=== PATIENT | female | born 1995 | race Caucasian/White ===

== ENCOUNTER 2018-04-09 05:44 | Emergency (ER) | payer MEDICAID ==
[2018-04-09] MEDS ORDERED: Acetaminophen TAB* 325 MG PO ONE (06:29)
[2018-04-09] MEDS ORDERED: Amoxicillin PO (*) 500 MG CAP PO ONE (06:29)
--- NOTE | 2018-04-09 06:32 | ED ---
Throat Pain/Nasal Congestion - HPI Summary HPI Summary: Lt lower tooth swollen and painful past 2 days. H/o recurrent infection since root canal a few years ago - get 3 infections per year - feels same. Needs to f/ u w/ dentist. Has been using salt water rinses w/ relief however concerned her face may start to swelling as it was swollen this morning - better since up and about. Denies fever, chills, N/V, headache, difficulty breathing or swallowing. Her neck has been a little sore in the front but denies aj stiffness. Also admits to rhinorrhea and PND - "kids have been sick" (URI). NOTE: pt had control method removed last month. Has been sexually active since. 2 weeks since last period. Trying to get but doesn't believe she is - has been having unprotected sex. - History of Current Complaint Chief Complaint: EDDentalPain Time Seen by Provider: 04/09/18 06:15 Hx Obtained From: Patient - Allergies/Home Medications Allergies/Adverse Reactions: Allergies Allergy/AdvReac Type Severity Reaction Status Date / Time No Known Allergies Allergy Verified 04/09/18 05:51 PMH/Surg Hx/FS Hx/Imm Hx Previously Healthy: Yes Endocrine/Hematology History: Denies: Hx Anticoagulant Therapy, Hx Blood Disorders, Autoimmune Disease Respiratory History: Denies: Hx Asthma EENT History: Reports: Other - recurrent dental infection Infectious Disease History: No Infectious Disease History: Denies: Traveled Outside the [place] in Last 30 Days - Family History Known Family History: Positive: Cardiac Disease, Diabetes, Other - cancer - Social History Occupation: Employed Full-time - [employer] Lives: With Family Alcohol Use: None Hx Substance Use: No Substance Use Type: Reports: None Hx Tobacco Use: Yes Amount Used/How Often: 1/2 PPD Review of Systems Constitutional: Negative Negative: Fever, Chills, Fatigue Positive: Dental Pain, Ear Ache - pain radiating from tooth to Lt ear, Nasal Discharge - rhinorrhea. Negative: Sore Throat Cardiovascular: Negative Respiratory: Negative Gastrointestinal: Negative Positive: no symptoms reported Musculoskeletal: Negative Skin: Negative Neurological: Negative Psychological: Normal All Other Systems Reviewed And Are Negative: Yes Physical Exam Triage Information Reviewed: Yes Vital Signs On Initial Exam: Initial Vitals Temp Pulse Resp BP Pulse Ox 97.6 F 90 16 117/66 98 04/09/18 05:48 04/09/18 05:48 04/09/18 05:48 04/09/18 05:48 04/09/18 05:48 Vital Signs Reviewed: Yes Appearance: Positive: Well-Appearing, No Pain Distress, Thin Skin: Positive: Warm, Skin Color Reflects Adequate Perfusion, Dry - no rash Head/Face: Positive: Normal Head/Face Inspection Eyes: Positive: Normal, EOMI, Conjunctiva Clear. Negative: Conjunctiva Inflammed, Discharge ENT: Positive: Hearing grossly normal, Pharynx normal, TMs normal, Dental tenderness - #21 w/ amalgom filling along lateral aspect of tooth with decay at the base - no aj erythema or edema or drainage - mild TTP focal to the area - tooth is not lax, no pustules, Uvula midline. Negative: Tonsillar swelling, Tonsillar exudate, Trismus, Muffled voice, Sinus tenderness Dental: Positive: Other - diffuse plaque - otherwise, dentition and gingiva appear overall healthy. Negative: Abscess @ Neck: Positive: Supple, Nontender, Enlarged Nodes @ - diffuse posterior, anterior cc LN's are mildly enlarged - mobile, well defined and mild TTP Respiratory/Lung Sounds: Positive: Clear to Auscultation, Breath Sounds Present Cardiovascular: Positive: Normal, RRR Musculoskeletal: Positive: Normal, Strength/ROM Intact Neurological: Positive: Normal, Sensory/Motor Intact, Alert, Oriented to Person Place, Time, CN Intact II-III Psychiatric: Positive: Normal Diagnostics - Vital Signs Vital Signs Temp Pulse Resp BP Pulse Ox 04/09/18 05:48 97.6 F 90 16 117/66 98 - Laboratory Lab Statement: Any lab studies that have been ordered have been reviewed, and results considered in the medical decision making process. EENT Course/Dx - Course Course Of Treatment: D/T inability to test for but pt reports actively trying to get , chose meds that are safe in and advised close f/u on testing herself for in 2 weeks when she should get her period. Education about avoiding ibuprofen until she is sure about status. DAnger s/sx of when to seek medical attention sooner for dental infection - otherwise, f/u w/ dentist. - Diagnoses Provider Diagnoses: Infected dental caries Discharge - Sign-Out/Discharge Documenting (check all that apply): Patient Departure - Discharge Plan Condition: Stable Disposition: HOME Prescriptions: Amoxicillin PO (*) [Amoxicillin 500 MG CAP*] 500 mg PO TID #30 cap Patient Education Materials: Dental Abscess (ED) Referrals: No Primary Care Phys,NOPCP [Primary Care Provider] - Additional Instructions: Continue salt water oral rinses Take acetaminophen extra strength every 6 hours as needed for pain AVOID IBUPROFEN UNTIL YOU EITHER GET YOUR PERIOD OR CHECK A TEST IN 2 WEEKS THIS MEDICATION MAY BE HARMFUL IN . Complete antibiotics as directed Follow-up with dentist G[facility] - call today to schedule an appointment for next week *If your symptoms worsen, return to ED - Billing Disposition and Condition Condition: STABLE Disposition: Home
[2018-04-09 06:55] VITALS: BP 118/66
== END 2018-04-09 06:55 | disposition home or self-care (01) ==
LOC: ED 05:44
DX: K02.9 Dental caries, unspecified (principal)
CPT/HCPCS: 99282; A9270-GY

== ENCOUNTER 2022-12-26 18:10 | Inpatient (IN) ==
[2022-12-26] MEDS ORDERED: Lactated Ringers 1000 ml BAG 1,000 ML IV ONE (19:45)
[2022-12-26] MEDS ORDERED: Dinoprostone 10 MG VAG.SUPP VAGINAL ONE (19:45)
[2022-12-26] MEDS ORDERED: Buffered Lidocaine 1% SYRIN 1 ml INTRADERM ONE (19:45)
[2022-12-26] MEDS ORDERED: Nicotine GUM 4MG FRUIT FLAVOR PO PRN (19:48)
[2022-12-26] MEDS ORDERED: Lactated Ringers 1000 ml BAG 1,000 ML IV SCH (20:00)
[2022-12-26] MEDS: Nicotine PATCH 14 MG/24 HR PATCH TRANSDERM SCH (20:09)
[2022-12-26 20:42] LABS: Urine Benzodiazepine Screen None Detected (None Detect); Urine Cannabinoids Screen None Detected (None Detect); Urine Opiates Screen None Detected (None Detect)
[2022-12-27] MEDS: Nicotine PATCH 14 MG/24 HR PATCH TRANSDERM SCH (08:51)
[2022-12-27] MEDS: Buprenorp/Nalox 8-2 MG FILM SL SCH (08:53)
[2022-12-27] MEDS ORDERED: miSOPROStol 100 mcg TAB VAGINAL ONE (11:13)
[2022-12-27] MEDS ORDERED: Oxytocin in LR 20,000 MILLI.UNIT/1,000 ML BAG IV SCH (16:45)
[2022-12-27 17:25] LABS: ABS Basophils 0.1 10^3/uL (0.0-0.1); ABS Eosinophils 0.2 10^3/uL (0.0-0.5); ABS Lymphocytes 2.7 10^3/uL (1.0-4.8); ABS Monocytes 0.8 10^3/uL (0.0-0.9); ABS Neutrophils 5.9 10^3/uL (1.5-7.6); ABS Nucleated RBC 0.01 10^3/ul; Eosinophil % 1.9 %; Hematocrit 35.6 % (35-45); Hemoglobin 12.5 g/dL (11.5-14.3); Lymphocyte % 28.2 %; Mean Corpuscular Hemoglobin 33.8 pg (27-33); Mean Corpuscular Volume 96.4 fL (80-97); Mean Platelet Volume 7.5 fL (7.5-11.2); Nucleated Red Blood Cells % 0.1 /100 WBC (0.0-0.4); Platelet Count 318 10^3/uL (150-450); Red Blood Count 3.69 10^6/uL (3.63-4.92); Red Cell Distribution Width 13.1 % (12-17); White Blood Count 9.7 10^3/uL (3.8-11.8)
[2022-12-27] MEDS ORDERED: Dinoprostone 10 MG VAG.SUPP VAGINAL ONE (23:26)
[2022-12-28] MEDS: Nicotine PATCH 14 MG/24 HR PATCH TRANSDERM SCH (07:40)
[2022-12-28] MEDS: Buprenorp/Nalox 8-2 MG FILM SL SCH (07:41)
== END 2022-12-28 14:28 | disposition home or self-care (01) | DRG 951 ==
LOC: MCHOBOUT 18:10 → MCHOB 18:40
PROVIDERS: ADMIT Midwife; ATTEND Midwife

== ENCOUNTER 2022-12-30 08:10 | Inpatient (IN) ==
[2022-12-30] MEDS ORDERED: Promethazine INJ(RESTRICTED) 25 MG/ML 1 ml VIAL IV PRN (09:40)
[2022-12-30] MEDS ORDERED: Lactated Ringers 1000 ml BAG 1,000 ML IV ONE (09:40)
[2022-12-30] MEDS ORDERED: Buffered Lidocaine 1% SYRIN 1 ml INTRADERM ONE (09:40)
[2022-12-30] MEDS ORDERED: Lactated Ringers 1000 ml BAG 1,000 ML IV SCH (10:00)
[2022-12-30] MEDS ORDERED: Buprenorp/Nalox 8-2 MG SL TAB PO SCH (10:00)
[2022-12-30] MEDS: miSOPROStol 100 mcg TAB PO SCH ×3 (10:24→21:23)
[2022-12-30] MEDS ORDERED: Nicotine PATCH 7 MG/24 HR PATCH TRANSDERM SCH (10:34)
[2022-12-30 11:36] LABS: ABS Basophils 0.1 10^3/uL (0.0-0.1); ABS Eosinophils 0.2 10^3/uL (0.0-0.5); ABS Lymphocytes 2.8 10^3/uL (1.0-4.8); ABS Monocytes 0.5 10^3/uL (0.0-0.9); ABS Neutrophils 5.6 10^3/uL (1.5-7.6); Eosinophil % 2.4 %; Hemoglobin 12.7 g/dL (11.5-14.3); Lymphocyte % 30.6 %; Mean Corpuscular Hemoglobin 33.2 pg (27-33); Mean Corpuscular Hgb Conc 34.4 g/dL (31-36); Mean Corpuscular Volume 96.5 fL (80-97); Mean Platelet Volume 7.5 fL (7.5-11.2); Platelet Count 280 10^3/uL (150-450); Red Blood Count 3.83 10^6/uL (3.63-4.92); Red Cell Distribution Width 13.3 % (12-17); White Blood Count 9.2 10^3/uL (3.8-11.8)
[2022-12-30 13:17] LABS: Urine Benzodiazepine Screen None Detected (None Detect); Urine Cannabinoids Screen None Detected (None Detect); Urine Opiates Screen None Detected (None Detect)
[2022-12-30] MEDS: Buprenorp/Nalox 4-1 MG FILM SL SCH (21:21)
[2022-12-31] MEDS: miSOPROStol 100 mcg TAB PO SCH ×4 (03:13→14:17)
[2022-12-31] MEDS ORDERED: Nicotine PATCH 7 MG/24 HR PATCH TRANSDERM SCH (08:00)
[2022-12-31] MEDS: Buprenorp/Nalox 4-1 MG FILM SL SCH ×2 (10:05→20:48)
[2022-12-31] MEDS: Nicotine PATCH 14 MG/24 HR PATCH TRANSDERM SCH (10:46)
[2022-12-31] MEDS ORDERED: ceFOXitin 2 GM IVPREMIX 2 GM/50 ML BAG IVPB ONE (11:50)
[2022-12-31 12:35] LABS: ABS Basophils 0.1 10^3/uL (0.0-0.1); ABS Eosinophils 0.1 10^3/uL (0.0-0.5); ABS Lymphocytes 2.6 10^3/uL (1.0-4.8); ABS Monocytes 0.7 10^3/uL (0.0-0.9); ABS Neutrophils 9.4 10^3/uL (1.5-7.6); ABS Nucleated RBC 0.02 10^3/ul; Hematocrit 37.7 % (35-45); Hemoglobin 12.8 g/dL (11.5-14.3); Lymphocyte % 20.1 %; Mean Corpuscular Hemoglobin 32.3 pg (27-33); Mean Corpuscular Volume 95.1 fL (80-97); Nucleated Red Blood Cells % 0.1 /100 WBC (0.0-0.4); Platelet Count 298 10^3/uL (150-450); Red Blood Count 3.97 10^6/uL (3.63-4.92)
[2022-12-31] MEDS ORDERED: Sodium Citrate/Citric Acid LIQ 15 ML UDC PO ONE (17:09)
[2022-12-31] MEDS ORDERED: Acetaminophen IV 1 GM/100ML 1,000 MG/100 ML BAG IV ONE (17:13)
[2022-12-31] MEDS ORDERED: Bupivacaine 0.25% w/EPI 10 ML SDV ONE (17:39)
[2022-12-31] MEDS ORDERED: Bupivacaine 0.25% SDV PF 10 ML VIAL INJ ONE (17:39)
[2022-12-31] MEDS ORDERED: Dexmedetomidine 200 mcg/2 ml 2 ml VIAL (200 mcg) ONE (17:56)
[2022-12-31] MEDS ORDERED: Phenylephrine 40 mcg/mL 10mL (400mcg) SYRINGE ONE (18:27)
[2022-12-31] MEDS ORDERED: Ondansetron 4 mg VIAL 2 MG/ML 2 ml VIAL ONE (18:27)
[2022-12-31] MEDS ORDERED: Witch Hazel PAD JAR TOPICAL PRN (18:37)
[2022-12-31] MEDS ORDERED: Glycerin ADULT 2.4 gm SUPP PR PRN (18:37)
[2022-12-31] MEDS ORDERED: Varicella Virus Vaccine Live 0.5 ML VIAL SUBCUT ONE (18:37)
[2022-12-31] MEDS ORDERED: Lactated Ringers 1000 ml BAG 1,000 ML IV SCH (19:00)
[2022-12-31 20:04] LABS: Urine Appearance Clear; Urine Bilirubin Negative (Negative); Urine Blood Negative (Negative); Urine Color Straw; Urine Glucose Negative (Negative); Urine Ketones Trace (Negative); Urine Nitrite Negative (Negative); Urine Protein Negative (Negative); Urine Specific Gravity 1.003 (1.002-1.030); Urine Urobilinogen Negative (Negative)
[2023-01-01 06:43] LABS: ABS Basophils 0.3 10^3/uL (0.0-0.1); ABS Lymphocytes 2.6 10^3/uL (1.0-4.8); ABS Monocytes 0.9 10^3/uL (0.0-0.9); ABS Neutrophils 14.4 10^3/uL (1.5-7.6); ABS Nucleated RBC 0.01 10^3/ul; Hematocrit 32.4 % (35-45); Hemoglobin 11.3 g/dL (11.5-14.3); Lymphocyte % 14.1 %; Mean Corpuscular Hemoglobin 33.6 pg (27-33); Mean Corpuscular Hgb Conc 34.9 g/dL (31-36); Mean Corpuscular Volume 96.2 fL (80-97); Mean Platelet Volume 7.8 fL (7.5-11.2); Nucleated Red Blood Cells % 0.1 /100 WBC (0.0-0.4); Platelet Count 275 10^3/uL (150-450); Red Blood Count 3.36 10^6/uL (3.63-4.92); White Blood Count 18.2 10^3/uL (3.8-11.8)
[2023-01-01] MEDS: Buprenorp/Nalox 4-1 MG FILM SL SCH ×2 (08:57→21:05)
[2023-01-01] MEDS: Nicotine PATCH 14 MG/24 HR PATCH TRANSDERM SCH (08:57)
[2023-01-01] MEDS ORDERED: Nicotine PATCH 14 MG/24 HR PATCH TRANSDERM SCH (09:00)
[2023-01-01] MEDS ORDERED: Varicella Virus Vaccine Live 0.5 ML VIAL SUBCUT ONE (09:00)
[2023-01-02] MEDS: Buprenorp/Nalox 4-1 MG FILM SL SCH (08:56)
[2023-01-02] MEDS: Nicotine PATCH 14 MG/24 HR PATCH TRANSDERM SCH (08:57)
[2023-01-02 09:21] VITALS: BP 93/58
== END 2023-01-02 15:30 | disposition home or self-care (01) | DRG 540 ==
LOC: MCHOBOUT 08:10 → MCHOB 09:36
PROVIDERS: ADMIT Registered Nurse; ATTEND Registered Nurse